=== PATIENT | female | born 1970 | race Caucasian/White ===

== ENCOUNTER 2022-06-07 04:11 | Day surgery (SDC) | payer OTHER ==
[2022-06-01 14:32] VITALS: BMI 32.1
[2022-06-07] MEDS ORDERED: GABAPENTIN 300 MG CAPSULE PO ONE (06:00)
[2022-06-07] MEDS ORDERED: TRANEXAMIC ACID 1000 MG/10 ML VIAL IVPUSH ONE (06:30)
[2022-06-07] MEDS ORDERED: CEFAZOLIN 2 GM in DEXTROSE 5%-WATER - 100 ML IVPB ONE (06:30)
[2022-06-07] MEDS ORDERED: ACETAMINOPHEN 1000 MG/100 ML BAG IVPB ONE (06:30)
[2022-06-07] MEDS ORDERED: PHENAZOPYRIDINE HCL 100 MG TABLET (FP) PO ONE (06:30)
[2022-06-07] MEDS ORDERED: GABAPENTIN 300 MG CAPSULE ONE (06:36)
[2022-06-07] MEDS ORDERED: ceFAZolin SODIUM 1 GM VIAL ONE (06:37)
[2022-06-07] MEDS ORDERED: ACETAMINOPHEN INJECTION 100 ML IVPB ONE ×2 (06:37→07:05)
[2022-06-07] MEDS ORDERED: PHENAZOPYRIDINE HCL 100 MG TABLET (FP) ONE ×2 (06:37→06:44)
[2022-06-07] MEDS ORDERED: DEXAMETHASONE SOD PHOSPHATE 4 MG/1 ML VIAL ONE (07:00)
[2022-06-07] MEDS ORDERED: SEVOFLURANE 250 ML BTL ONE (07:00)
[2022-06-07] MEDS ORDERED: SUCCINYLCHOLINE CHLORIDE 200 MG/10 ML SYRINGE ONE (07:01)
[2022-06-07] MEDS ORDERED: MIDAZOLAM HCL 2 MG/2 ML SINGLE DOSE VIAL ONE (07:01)
[2022-06-07] MEDS ORDERED: ROCURONIUM BROMIDE 50 MG/5 ML SYRINGE ONE (07:01)
[2022-06-07] MEDS ORDERED: PROPOFOL 20 ML ONE (07:01)
[2022-06-07] MEDS ORDERED: DEXAMETHASONE SOD PHOSPHATE 10 MG/1 ML VIAL ONE (07:05)
[2022-06-07] MEDS ORDERED: BUPIVACAINE HCL/PF 0.25% (2.5MG/ML) 10 ML VIAL ONE (07:05)
[2022-06-07] MEDS ORDERED: ONDANSETRON 4 MG/2 ML VIAL IVPUSH PRN ×2 (07:41→10:48)
[2022-06-07] MEDS ORDERED: ACETAMINOPHEN 325 MG TABLET (FP) PO PRN (07:41)
[2022-06-07] MEDS ORDERED: LACTATED RINGERS SOLUTION 1,000 ML IV SCH (07:45)
[2022-06-07] MEDS ORDERED: HYDROmorphone HCl 2 MG/ML VIAL ONE (08:12)
[2022-06-07] MEDS ORDERED: ceFAZolin SODIUM 1 GM VIAL IVPB ONE (08:14)
[2022-06-07] MEDS ORDERED: GLYCOPYRROLATE 0.2 MG/1 ML VIAL ONE ×2 (08:27)
[2022-06-07] MEDS ORDERED: KETOROLAC TROMETHAMINE 30 MG/1 ML VIAL ONE (08:33)
[2022-06-07] MEDS ORDERED: NEOSTIGMINE METHYLSULFATE 0.5 MG/ML - 10 ML MDV ONE (10:00)
[2022-06-07] MEDS ORDERED: oxyCODONE HCL 5 MG TABLET PO PRN ×2 (10:48)
[2022-06-07] MEDS ORDERED: DOCUSATE SODIUM 100 MG CAPSULE (FP) PO PRN (10:48)
[2022-06-07] MEDS ORDERED: BISACODYL 5 MG TABLET.DR (FP) PO PRN (10:48)
[2022-06-07] MEDS ORDERED: SODIUM CHLORIDE 1,000 ML IV SCH (11:00)
[2022-06-07] MEDS ORDERED: CEFAZOLIN 2 GM in DEXTROSE 5%-WATER - 100 ML IVPB SCH (15:00)
[2022-06-07] MEDS: CEFAZOLIN SODIUM 2 GM in DEXTROSE 5%-WATER 100 ML IVPB SCH (17:38)
[2022-06-07 18:29] LABS: HEMATOCRIT 39.6 % (32.4-45.2); HEMOGLOBIN 12.4 GM/dL (10.7-15.3); MCH 28.1 pg (25.7-33.7); MCHC 31.4 g/dl (32.0-36.0); MEAN CELL VOLUME 89.3 fl (80-96); PLATELET COUNT 213 10^3/uL (134-434); RBC 4.43 M/mm3 (3.60-5.2); RDW 15.5 % (11.6-15.6); WHITE BLOOD COUNT 10.3 K/mm3 (4.0-10.0)
[2022-06-07 18:42] LABS: CALCIUM 8.2 mg/dL (8.5-10.1)
[2022-06-07 18:43] LABS: BLOOD UREA NITROGEN 12.1 mg/dL (7-18)
[2022-06-07 18:46] LABS: CREATININE 0.9 mg/dL (0.55-1.3)
[2022-06-07] MEDS ORDERED: KETOROLAC TROMETHAMINE 30 MG/1 ML VIAL IVPUSH PRN (19:00)
[2022-06-07] MEDS: ACETAMINOPHEN 1000 MG/100 ML BAG IVPB SCH (20:28)
[2022-06-08] MEDS: CEFAZOLIN SODIUM 2 GM in DEXTROSE 5%-WATER 100 ML IVPB SCH (02:38)
[2022-06-08] MEDS: ACETAMINOPHEN 1000 MG/100 ML BAG IVPB SCH ×2 (02:38→10:54)
[2022-06-08] MEDS: SIMETHICONE 80 MG TAB.CHEW (FP) PO PRN ×2 (06:36→10:54)
[2022-06-08] MEDS ORDERED: ENOXAPARIN NA (PORCINE) 40 MG/0.4 ML DISP.SYRIN SQ SCH (10:00)
[2022-06-08 10:35] LABS: HEMATOCRIT 35.2 % (32.4-45.2); HEMOGLOBIN 11.1 GM/dL (10.7-15.3); MCH 27.8 pg (25.7-33.7); MCHC 31.4 g/dl (32.0-36.0); MEAN CELL VOLUME 88.5 fl (80-96); MEAN PLT VOLUME 9.7 fl (7.5-11.1); PLATELET COUNT 204 10^3/uL (134-434); RBC 3.98 M/mm3 (3.60-5.2); RDW 15.5 % (11.6-15.6); WHITE BLOOD COUNT 12.5 K/mm3 (4.0-10.0)
[2022-06-08 11:09] LABS: CALCIUM 8.4 mg/dL (8.5-10.1)
[2022-06-08 11:22] VITALS: BP 111/75; PULSE 65; RESP 18; TEMP 98.5
[2022-06-08] MEDS ORDERED: ACETAMINOPHEN 500 MG TABLET (FP) PO ONE ×2 (13:00→13:15)
[2022-06-08] MEDS ORDERED: ACETAMINOPHEN 1000 MG/100 ML BAG IVPB ONE (13:00)
== END 2022-06-08 12:30 | disposition home or self-care (01) ==
LOC: JASUSAT 04:11 → J3W 12:41 → JASUSAT 06-08 12:30
PROVIDERS: ATTEND Obstetrics & Gynecology
PROC: 0UT7FZZ Resection of Bilateral Fallopian Tubes, Via Natural or Artificial Opening With Percutaneous Endoscopic Assistance (ICD-10-PCS; 2022-06-07)
PROC: 8E0W4CZ Robotic Assisted Procedure of Trunk Region, Percutaneous Endoscopic Approach (ICD-10-PCS; 2022-06-07)
PROC: 0UB14ZZ Excision of Left Ovary, Percutaneous Endoscopic Approach (ICD-10-PCS; 2022-06-07)
PROC: 0UT9FZZ Resection of Uterus, Via Natural or Artificial Opening With Percutaneous Endoscopic Assistance (ICD-10-PCS; principal; 2022-06-07 07:30)
DX: N92.0 Excessive and frequent menstruation with regular cycle (principal); D25.9 Leiomyoma of uterus, unspecified; N94.6 Dysmenorrhea, unspecified; N83.202 Unspecified ovarian cyst, left side
CPT/HCPCS: 58554; 58662; S2900; 36415; 80048; 81025; 85027; 86850; 86900; 86901; 88302-TC; 88305-TC; 88307-TC; 94760; J1100